=== PATIENT | female | born 1950 | race Caucasian/White ===

== ENCOUNTER 2020-08-21 14:09 | Inpatient (IN) | payer MEDICARE, MEDICAID ==
[~2020-08-21] VITALS: Ht 160 cm; Wt 47.6 kg
[~2020-08-21 14:09] MED LIST: ACETAMINOPHEN-1 EAC2 PO; ALPRAZOLAM0.25 MG PO; QUETIAPINE FUM200 MG PO
[2020-08-21] MEDS ORDERED: Morphine Sulfate 4mg/ml Inj IVP ONE (14:30)
[2020-08-21 14:31] VITALS: BP 124/82
[2020-08-21] MEDS ORDERED: GABAPENTIN100 MG ORAL (14:36)
[2020-08-21] MEDS ORDERED: LINZESS290 MCG PO (14:36)
[2020-08-21] MEDS ORDERED: DULOXETINE HCL20 MG PO (14:36)
[2020-08-21] MEDS ORDERED: ROBAXIN-500MG ORAL (14:37)
[2020-08-21] MEDS ORDERED: ALBUTEROL2.5 MG/3 M INH (14:37)
[2020-08-21 15:06] LABS: BASOPHILS % (AUTO) 1.5 % (0.0-2.0); HEMATOCRIT 46.5 % (37.0-47.0); HEMOGLOBIN 14.6 G/DL (12.0-16.0); LYMPHOCYTES % (AUTO) 27.8 % (20.0-45.0); MEAN CORPUSCULAR VOLUME 91 FL (80-99); MONOCYTES % (AUTO) 5.8 % (1.0-10.0); NEUTROPHILS % (AUTO) 63.8 % (45.0-75.0); PLATELET COUNT 252 K/UL (150-450); RED BLOOD COUNT 5.11 M/UL (4.20-5.40); RED CELL DISTRIBUTION WIDTH 13.6 % (11.6-14.8)
[2020-08-21 15:23] LABS: APPEARANCE,URINE CLEAR; BILIRUBIN, URINE NEGATIVE (NEGATIVE); COLOR,URINE PALE YELLOW; GLUCOSE, URINE (UA) NEGATIVE (NEGATIVE); KETONES,URINE NEGATIVE (NEGATIVE); LEUKOCYTE ESTERASE ,URINE NEGATIVE (NEGATIVE); NITRITE,URINE NEGATIVE (NEGATIVE); PH,URINE 5 (4.5-8.0); PROTEIN,URINE NEGATIVE (NEGATIVE); UROBILINOGEN,URINE NORMAL MG/DL (0.0-1.0)
[2020-08-21 15:28] LABS: ANION GAP 12 mmol/L (5-15); BLOOD UREA NITROGEN 14 mg/dL (7-18); CALCIUM 9.8 MG/DL (8.5-10.1); CARBON DIOXIDE 25 MMOL/L (21-32); CHLORIDE 106 MMOL/L (98-107); CREATININE 0.7 MG/DL (0.55-1.30); POTASSIUM 3.9 MMOL/L (3.5-5.1); SODIUM 143 MMOL/L (136-145)
[2020-08-21 15:33] LABS: ALANINE AMINOTRANSFERASE 22 U/L (12-78); ALBUMIN 3.7 G/DL (3.4-5.0); ALKALINE PHOSPHATASE 101 U/L (46-116); ASPARTATE AMINO TRANSFERASE 17 U/L (15-37); BILIRUBIN,TOTAL 0.3 MG/DL (0.2-1.0)
--- NOTE | 2020-08-21 15:52 | Emergency Room Report ---
History of Present Illness General Chief Complaint: Pain Source: Patient Present Illness HPI 69-year-old female presents for evaluation. Brought in by EMS from custodial facility. Complaining of rectal pain and abdominal pain x1 day. History of IBS. States she is been having diarrhea. Pain is sharp, 10 out of 10, nonradiating. No other aggravating relieving factors. Denies any other associated symptoms Allergies: Coded Allergies: No Known Allergies (Unverified , 06/15/12) COVID-19 Screening Contact w/high risk pt: No Experienced COVID-19 symptoms?: No COVID-19 Testing performed ADMINISTRATIVE DIRECTOR: No Patient History Past Medical History: none, other - IBS Past Surgical History: none Pertinent Family History: none Social History: Denies: smoking, alcohol use, drug use Now: No Immunizations: UTD Reviewed Nursing Documentation: PMH: Agreed; PSxH: Agreed Nursing Documentation-PMH Hx Cardiac Problems: No Hx Cancer: No Hx Gastrointestinal Problems: No - IBS Hx Neurological Problems: Yes Hx Meningitis: Yes - 1985 Review of Systems All Other Systems: negative except mentioned in HPI Physical Exam Vital Signs Date Time Temp Pulse Resp B/P (MAP) Pulse Ox O2 Delivery O2 Flow Rate FiO2 08/21/20 14:14 105 20 124/82 (96) 93 Room Air Sp02 EP Interpretation: reviewed, normal General Appearance: no apparent distress, alert, GCS 15, non-toxic Head: normocephalic, atraumatic Eyes: bilateral eye normal inspection, bilateral eye PERRL ENT: hearing grossly normal, normal pharynx, no angioedema, normal voice Neck: full range of motion, supple/symm/no masses Respiratory: chest non-tender, lungs clear, normal breath sounds, speaking full sentences Cardiovascular #1: regular rate, rhythm, no edema Cardiovascular #2: 2+ carotid (R), 2+ carotid (L), 2+ radial (R), 2+ radial (L), 2+ dorsalis pedis (R), 2+ dorsalis pedis (L) Gastrointestinal: normal bowel sounds, soft, no guarding, no rebound, tenderness Rectal: tenderness Genitourinary: normal inspection, no CVA tenderness Musculoskeletal: back normal, normal range of motion, gait/station normal, non- tender Neurologic: alert, motor strength/tone normal, oriented x3, sensory intact, responsive, speech normal Psychiatric: judgement/insight normal, memory normal, mood/affect normal, no suicidal/homicidal ideation Reflexes: 3+ bicep (R), 3+ bicep (L), 3+ tricep (R), 3+ tricep (L), 3+ knee (R), 3+ knee (L) Skin: no rash Lymphatic: no adenopathy Medical Decision Making Diagnostic Impression: Primary Impression: Intractable abdominal pain ER Course Hospital Course 69-year-old female presents with rectal pain and abdominal pain Differential diagnoses include: BPH, cystitis, pyelonephritis, kidney stone Clinical course 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 After initial history and physical I ordered labs, meds and CT Labs - no leukocytosis, Hb/Hct stable, electrolytes okay, UA negative CT abdomen and pelvis -no acute process. There appears to be a lesion in the left lung. Significant fecal impaction. Patient continues to have pain. We will admit Case discussed with Dr. Simental and he agreed to accept the patient to his service for further care and support I feel this is a highly complex case requiring extensive working including EKG/Rhythm strip, Xray/CT/US, Blood/urine lab work, repeat exams while in ED, an d administration of strong opiates/narcotics for pain control, admission to hospital or close patient follow up. Diagnosis -intractable abdominal pain Patient admitted to floor in serious condition Laboratory Tests Test 08/21/20 14:48 08/21/20 15:15 White Blood Count 6.0 K/UL (4.8-10.8) Red Blood Count 5.11 M/UL (4.20-5.40) Hemoglobin 14.6 G/DL (12.0-16.0) Hematocrit 46.5 % (37.0-47.0) Mean Corpuscular Volume 91 FL (80-99) Mean Corpuscular Hemoglobin 28.6 PG (27.0-31.0) Mean Corpuscular Hemoglobin Concent 31.4 G/DL (32.0-36.0) L Red Cell Distribution Width 13.6 % (11.6-14.8) Platelet Count 252 K/UL (150-450) Mean Platelet Volume 10.2 FL (6.5-10.1) H Neutrophils (%) (Auto) 63.8 % (45.0-75.0) Lymphocytes (%) (Auto) 27.8 % (20.0-45.0) Monocytes (%) (Auto) 5.8 % (1.0-10.0) Eosinophils (%) (Auto) 1.0 % (0.0-3.0) Basophils (%) (Auto) 1.5 % (0.0-2.0) Sodium Level 143 MMOL/L (136-145) Potassium Level 3.9 MMOL/L (3.5-5.1) Chloride Level 106 MMOL/L (98-107) Carbon Dioxide Level 25 MMOL/L (21-32) Anion Gap 12 mmol/L (5-15) Blood Urea Nitrogen 14 mg/dL (7-18) Creatinine 0.7 MG/DL (0.55-1.30) Estimat Glomerular Filtration Rate > 60 mL/min (>60) Glucose Level 99 MG/DL (74-106) Calcium Level 9.8 MG/DL (8.5-10.1) Total Bilirubin 0.3 MG/DL (0.2-1.0) Aspartate Amino Transf (AST/SGOT) 17 U/L (15-37) Alanine Aminotransferase (ALT/SGPT) 22 U/L (12-78) Alkaline Phosphatase 101 U/L (46-116) Total Protein 7.5 G/DL (6.4-8.2) Albumin 3.7 G/DL (3.4-5.0) Globulin 3.8 g/dL Albumin/Globulin Ratio 1.0 (1.0-2.7) Lipase 112 U/L (73-393) Urine Color Pale yellow Urine Appearance Clear Urine pH 5 (4.5-8.0) Urine Specific [place] 1.015 (1.005-1.035) Urine Protein Negative (NEGATIVE) Urine Glucose (UA) Negative (NEGATIVE) Urine Ketones Negative (NEGATIVE) Urine Blood Negative (NEGATIVE) Urine Nitrite Negative (NEGATIVE) Urine Bilirubin Negative (NEGATIVE) Urine Urobilinogen Normal MG/DL (0.0-1.0) Urine Leukocyte Esterase Negative (NEGATIVE) CT/MRI/US Diagnostic Results CT/MRI/US Diagnostic Results : Imaging Test Ordered: CT A/P Impression Procedure: CT Abdomen Pelvis w/Contrast Clinical Indication: Abdominal pain Technique: No oral contrast utilized, per emergency room physician request IV administration nonionic contrast. Venous phase spiral acquisition obtained through the abdomen and pelvis. Multiplanar reconstructions were generated. Total dose length product 162 mGycm. CTDIvol(s) 3 mGy. Dose reduction achieved using automated exposure control Comparison: none Findings: The appendix is normal. There are a few colonic diverticula. No evidence of diverticulitis. The distal ileum is mildly prominent and fluid-filled, but no transition point is noted and there is no definite wall thickening. No free or loculated intraperitoneal gas or fluid is evident. Distal esophagus, stomach, duodenum are unremarkable. The liver is unremarkable. There are questionably stones in the gallbladder neck. No biliary ductal dilatation. The pancreas, spleen, adrenals are unremarkable. There is a calcification in the right kidney which is probably parenchymal. Left kidney is unremarkable. No renal or ureteral calculi, hydronephrosis, or hydroureter. The bladder is mildly distended, otherwise unremarkable. The uterus and adnexal structures are unremarkable. No pelvic mass or adenopathy. The included lung bases demonstrate hyperinflation. There is an irregular opacity in the left lower lobe which measures 2.3 cm AP by 1.3 cm transverse, demonstrates a few internal air bronchograms. There is some adjacent peripheral scarring in the left lower lobe. There are a few small peripheral paraseptal bullae. The bones are unremarkable. Impression: Nonspecific prominence of the distal ileum, which is mildly dilated and fluid-filled, may represent mild enteritis/ileitis or could be baseline for this patient No definite acute abdominal or pelvic abnormality otherwise 2.3 x 1.3 cm irregular left lower lobe opacity. Appearance most suggestive of an area of scarring, but the possibility that this represents a mass lesion should also be considered, and further evaluation is recommended. Comparison with any prior exams may be useful or PET/CT may be useful. This finding was discussed by phone with Dr. Linares at the time of interpretation COPD changes Questionable cholelithiasis Right renal parenchymal calcification incidentally noted The CT scanner at [facility] is accredited by the [employer] and the scans are performed using protocols designed to limit radiation exposure to as low as reasonably achievable to attain images of sufficient resolution adequate for diagnostic evaluation. Last Vital Signs Date Time Temp Pulse Resp B/P (MAP) Pulse Ox O2 Delivery O2 Flow Rate FiO2 08/21/20 14:31 20 124/82 93 Room Air 08/21/20 14:14 105 Status: improved Disposition: ADMITTED INPATIENT Condition: Serious Referrals: Rodolfo Simental M.D. (PCP) Martinez Linares MD Aug 21, 2020 15:52
[2020-08-21 16:50] VITALS: BP 153/90
--- NOTE | 2020-08-21 17:10 | Diagnostic Imaging Report ---
Clinical Indication: Abdominal pain Technique: No oral contrast utilized, per emergency room physician request IV administration nonionic contrast. Venous phase spiral acquisition obtained through the abdomen and pelvis. Multiplanar reconstructions were generated. Total dose length product 162 mGycm. CTDIvol(s) 3 mGy. Dose reduction achieved using automated exposure control Comparison: none Findings: The appendix is normal. There are a few colonic diverticula. No evidence of diverticulitis. The distal ileum is mildly prominent and fluid-filled, but no transition point is noted and there is no definite wall thickening. No free or loculated intraperitoneal gas or fluid is evident. Distal esophagus, stomach, duodenum are unremarkable. The liver is unremarkable. There are questionably stones in the gallbladder neck. No biliary ductal dilatation. The pancreas, spleen, adrenals are unremarkable. There is a calcification in the right kidney which is probably parenchymal. Left kidney is unremarkable. No renal or ureteral calculi, hydronephrosis, or hydroureter. The bladder is mildly distended, otherwise unremarkable. The uterus and adnexal structures are unremarkable. No pelvic mass or adenopathy. The included lung bases demonstrate hyperinflation. There is an irregular opacity in the left lower lobe which measures 2.3 cm AP by 1.3 cm transverse, demonstrates a few internal air bronchograms. There is some adjacent peripheral scarring in the left lower lobe. There are a few small peripheral paraseptal bullae. The bones are unremarkable. Impression: Nonspecific prominence of the distal ileum, which is mildly dilated and fluid-filled, may represent mild enteritis/ileitis or could be baseline for this patient No definite acute abdominal or pelvic abnormality otherwise 2.3 x 1.3 cm irregular left lower lobe opacity. Appearance most suggestive of an area of scarring, but the possibility that this represents a mass lesion should also be considered, and further evaluation is recommended. Comparison with any prior exams may be useful or PET/CT may be useful. This finding was discussed by phone with Dr. Linares at the time of interpretation COPD changes Questionable cholelithiasis Right renal parenchymal calcification incidentally noted The CT scanner at [facility] is accredited by the [employer] and the scans are performed using protocols designed to limit radiation exposure to as low as reasonably achievable to attain images of sufficient resolution adequate for diagnostic evaluation.
[2020-08-21 20:00] VITALS: BP 150/89
[2020-08-21] MEDS ORDERED: oxyCODONE 5mg IR tab ORAL PRN (20:00)
[2020-08-21] MEDS ORDERED: Albuterol ud Inhalation HHN PRN (20:00)
[2020-08-21] MEDS ORDERED: Methocarbamol 500mg tab ORAL PRN (20:00)
[2020-08-21] MEDS ORDERED: Miralax 17gm pkt ORAL PRN (20:00)
[2020-08-22] VITALS: BP 129/81
[2020-08-22 04:00] VITALS: BP 125/68
[2020-08-22 08:44] VITALS: BP 134/84
[2020-08-22] MEDS: oxyCODONE 5mg IR tab ORAL PRN ×2 (08:55→15:00)
[2020-08-22 12:35] VITALS: BP 138/84
[2020-08-22 17:00] VITALS: BP 147/98
--- NOTE | 2020-08-22 19:58 | Consultation ---
History of Present Illness General Date patient seen: Aug 22, 2020 Reason for Hospitalization: Pain Present Illness HPI This is a very pleasant [age] female presented to [facility] complaining of abdominal pain states overall body hurts. States she is at her care facility and they are not giving her the pain medication she needs and she needs a prescription for it and she feels her pain is significant and deserves for pain medication. Given abdominal pain surgery called to eval and assist with care. Patient seen, patient evaluate, chart reviewed. Labs noted imaging reviewed. Exam benign Allergies: Coded Allergies: No Known Allergies (Unverified , 06/15/12) COVID-19 Screening Contact w/high risk pt: No Experienced COVID-19 symptoms?: No Medication History Scheduled Acetaminophen With Codeine (T#4) (Tylenol #4 Tab*), 1 EACH PO DAILY, (Reported) Alprazolam* (Xanax*), 1 TAB PO PRN, (Reported) Duloxetine HCl (Duloxetine HCl*), 20 MG PO DAILY, (Reported) Gabapentin* (Gabapentin*), 300 MG ORAL THREE TIMES A DAY, (Reported) Quetiapine Fumarate* (Seroquel*), 200 MG PO HS, (Reported) Scheduled PRN Albuterol Sulfate* (Albuterol Sulfate Hhn*), 3 ML INH Q4H PRN for Shortness of Breath, (Reported) Methocarbamol* (Robaxin-500*), 500 MG ORAL QID PRN for For Pain, (Reported) Miscellaneous Medications Linaclotide (Linzess), 290 MCG PO, (Reported) Patient History History Provided By: Patient, Medical Record, PMD Healthcare decision maker N Resuscitation status Advanced Directive on File Past Medical/Surgical History Past Medical/Surgical History: (1) Intractable abdominal pain Review of Systems Review of Symptoms General ROS: no weight loss or fever Psychological ROS: no depression or mood changes, no memory loss Ophthalmic ROS: no visual changes or eye irritation ENT ROS: no nasal congestion, hearing loss, dizziness Allergy and Immunology ROS: no allergic symptoms or urticaria Hematological and Lymphatic ROS: no swollen glands, unusual bleeding or bruising Endocrine ROS: no polyuria, polydipsia, weight changes, temperature intolerance Respiratory ROS: no cough, shortness of breath, or wheezing Cardiovascular ROS: no chest pain or dyspnea on exertion Gastrointestinal ROS: denies abdominal pain, bright red blood in stool. Musculoskeletal ROS: no myalgias or arthralgias Neurological ROS: no TIA or stroke symptoms Dermatological ROS: no new or changing skin lesions, rashes or pruritis Physical Exam Physical Exam General appearance: alert, cooperative, no distress, appears stated age Head: Normocephalic, without obvious abnormality, atraumatic Eyes: conjunctivae/corneas clear. PERRL, EOM's intact. Fundi benign Throat: Lips, mucosa, and tongue normal. Teeth and gums normal Neck: supple, symmetrical, trachea midline, no adenopathy, thyroid: not enlarged, symmetric, no tenderness/mass/nodules, no carotid bruit and no JVD Lungs: clear to auscultation bilaterally Heart: regular rate and rhythm, S1, S2 normal, no murmur, click, rub or gallop Abdomen: soft, non-tender. Bowel sounds normal. No masses, no organomegaly Extremities: extremities normal, atraumatic, no cyanosis or edema Pulses: 2+ and symmetric Skin: Skin color, texture, turgor normal. No rashes or lesions Neurologic: Grossly normal Last 24 Hour Vital Signs Date Time Temp Pulse Resp B/P (MAP) Pulse Ox O2 Delivery O2 Flow Rate FiO2 08/22/20 17:00 98.2 73 18 147/98 (114) 95 08/22/20 12:35 97.9 69 18 138/84 (102) 95 08/22/20 09:00 Room Air 08/22/20 08:44 97.9 72 18 134/84 (101) 95 08/22/20 08:40 76 16 98 Room Air 21 08/22/20 04:00 97.2 63 18 125/68 (87) 94 08/22/20 00:00 98.0 87 20 129/81 (97) 95 08/21/20 20:50 Room Air 08/21/20 20:00 97.9 89 20 150/89 (109) 96 Intake and Output 08/21/20 08/22/20 19:00 07:00 Intake Total 800 ml Balance 800 ml Intake Oral 800 ml # Voids 1 Height (Feet): 5 Height (Inches): 3.00 Weight (Pounds): 105 Medications Current Medications Medications (Trade) Dose Ordered Sig/Haven Route PRN Reason Start Time Stop Time Status Last Admin Dose Admin Acetaminophen (Tylenol) 650 mg Q6H PRN ORAL Mild Pain (1-3) or Fever 100.5 08/21/20 20:00 09/20/20 19:59 Albuterol Sulfate (Proventil) 2.5 mg Q4H PRN HHN Shortness of Breath 08/21/20 20:00 08/26/20 19:59 Duloxetine HCl (Cymbalta) 20 mg DAILY ORAL 08/22/20 09:00 11/20/20 08:59 Gabapentin (Neurontin) 300 mg THREE TIMES A DAY ORAL 08/22/20 09:00 09/21/20 08:59 Linaclotide (Linzess) 290 mcg BEFORE BREAKFAST ORAL 08/22/20 06:30 11/20/20 06:29 08/22/20 06:12 Methocarbamol (Robaxin) 500 mg QID PRN ORAL Muscle Spasm 08/21/20 20:00 09/20/20 19:59 Ondansetron HCl (Zofran) 4 mg Q6H PRN IVP Nausea & Vomiting 08/21/20 20:00 09/20/20 19:59 Oxycodone HCl (Roxicodone) 10 mg Q6HR PRN ORAL Moderate Pain (Pain Scale 4-6) 08/22/20 00:45 08/28/20 19:59 08/22/20 15:00 Polyethylene Glycol (Miralax) 17 gm DAILY PRN ORAL Constipation 08/21/20 20:00 09/20/20 19:59 Quetiapine Fumarate (SEROqueL) 100 mg BEDTIME ORAL 08/21/20 21:30 10/05/20 21:29 08/21/20 21:23 Assessment/Plan Problem List: (1) Intractable abdominal pain Assessment & Plan: The appendix is normal. There are a few colonic diverticula. No evidence of diverticulitis. The distal ileum is mildly prominent and fluid-filled, but no transition point is noted and there is no definite wall thickening. No free or loculated intraperitoneal gas or fluid is evident. Distal esophagus, stomach, duodenum are unremarkable. The liver is unremarkable. There are questionably stones in the gallbladder neck. No biliary ductal dilatation. The pancreas, spleen, adrenals are unremarkable. There is a calcification in the right kidney which is probably parenchymal. Left kidney is unremarkable. No renal or ureteral calculi, hydronephrosis, or hydroureter. The bladder is mildly distended, otherwise unremarkable. The uterus and adnexal structures are unremarkable. No pelvic mass or adenopathy. The included lung bases demonstrate hyperinflation. There is an irregular opacity in the left lower lobe which measures 2.3 cm AP by 1.3 cm transverse, demonstrates a few internal air bronchograms. There is some adjacent peripheral scarring in the left lower lobe. There are a few small peripheral paraseptal bullae. no acute abd pathology exam benign no n/v/f/c tolerating diet having bowel function not surgical abdomen okay for diet Rx as written AM labs will follow with exam and recs ICD Codes: R10.9 - Unspecified abdominal pain SNOMED: [id number] Ag Brito Aug 22, 2020 19:58
[2020-08-22 20:00] VITALS: BP 126/78
--- NOTE | 2020-08-22 20:12 | History & Physical ---
History of Present Illness General Reason for Hospitalization: Pain Present Illness HPI [age] female presented to [facility] complaining of abdominal pain states overall body hurts. States she is at her care facility and they are not giving her the pain medication she needs and she needs a prescription for it and she feels her pain is significant and deserves for pain medication. Allergies: Coded Allergies: No Known Allergies (Unverified , 06/15/12) COVID-19 Screening Contact w/high risk pt: No Experienced COVID-19 symptoms?: No Medication History Scheduled Acetaminophen With Codeine (T#4) (Tylenol #4 Tab*), 1 EACH PO DAILY, (Reported) Alprazolam* (Xanax*), 1 TAB PO PRN, (Reported) Duloxetine HCl (Duloxetine HCl*), 20 MG PO DAILY, (Reported) Gabapentin* (Gabapentin*), 300 MG ORAL THREE TIMES A DAY, (Reported) Quetiapine Fumarate* (Seroquel*), 200 MG PO HS, (Reported) Scheduled PRN Albuterol Sulfate* (Albuterol Sulfate Hhn*), 3 ML INH Q4H PRN for Shortness of Breath, (Reported) Methocarbamol* (Robaxin-500*), 500 MG ORAL QID PRN for For Pain, (Reported) Miscellaneous Medications Linaclotide (Linzess), 290 MCG PO, (Reported) Patient History Healthcare decision maker N Resuscitation status Advanced Directive on File Review of Systems Review of Symptoms General ROS: no weight loss or fever Psychological ROS: no depression or mood changes, no memory loss Ophthalmic ROS: no visual changes or eye irritation ENT ROS: no nasal congestion, hearing loss, dizziness Allergy and Immunology ROS: no allergic symptoms or urticaria Hematological and Lymphatic ROS: no swollen glands, unusual bleeding or bruising Endocrine ROS: no polyuria, polydipsia, weight changes, temperature intolerance Respiratory ROS: no cough, shortness of breath, or wheezing Cardiovascular ROS: no chest pain or dyspnea on exertion Gastrointestinal ROS: denies abdominal pain, bright red blood in stool. Musculoskeletal ROS: no myalgias or arthralgias Neurological ROS: no TIA or stroke symptoms Dermatological ROS: no new or changing skin lesions, rashes or pruritis Physical Exam Physical Exam General appearance: alert, cooperative, no distress, appears stated age Head: Normocephalic, without obvious abnormality, atraumatic Eyes: conjunctivae/corneas clear. PERRL, EOM's intact. Fundi benign Throat: Lips, mucosa, and tongue normal. Teeth and gums normal Neck: supple, symmetrical, trachea midline, no adenopathy, thyroid: not enlarged, symmetric, no tenderness/mass/nodules, no carotid bruit and no JVD Lungs: clear to auscultation bilaterally Heart: regular rate and rhythm, S1, S2 normal, no murmur, click, rub or gallop Abdomen: soft, non-tender. Bowel sounds normal. No masses, no organomegaly Extremities: extremities normal, atraumatic, no cyanosis or edema Pulses: 2+ and symmetric Skin: Skin color, texture, turgor normal. No rashes or lesions Neurologic: Grossly normal Last 24 Hour Vital Signs Date Time Temp Pulse Resp B/P (MAP) Pulse Ox O2 Delivery O2 Flow Rate FiO2 08/22/20 17:00 98.2 73 18 147/98 (114) 95 08/22/20 12:35 97.9 69 18 138/84 (102) 95 08/22/20 09:00 Room Air 08/22/20 08:44 97.9 72 18 134/84 (101) 95 08/22/20 08:40 76 16 98 Room Air 21 08/22/20 04:00 97.2 63 18 125/68 (87) 94 08/22/20 00:00 98.0 87 20 129/81 (97) 95 08/21/20 20:50 Room Air Intake and Output 08/21/20 08/22/20 19:00 07:00 Intake Total 800 ml Balance 800 ml Intake Oral 800 ml # Voids 1 Height (Feet): 5 Height (Inches): 3.00 Weight (Pounds): 105 Medications Current Medications Medications (Trade) Dose Ordered Sig/Haven Route PRN Reason Start Time Stop Time Status Last Admin Dose Admin Acetaminophen (Tylenol) 650 mg Q6H PRN ORAL Mild Pain (1-3) or Fever 100.5 08/21/20 20:00 09/20/20 19:59 Albuterol Sulfate (Proventil) 2.5 mg Q4H PRN HHN Shortness of Breath 08/21/20 20:00 08/26/20 19:59 Docusate Sodium (Colace) 100 mg TWICE A DAY ORAL 08/23/20 09:00 09/22/20 08:59 Duloxetine HCl (Cymbalta) 20 mg DAILY ORAL 08/22/20 09:00 11/20/20 08:59 Gabapentin (Neurontin) 300 mg THREE TIMES A DAY ORAL 08/22/20 09:00 09/21/20 08:59 Linaclotide (Linzess) 290 mcg BEFORE BREAKFAST ORAL 08/22/20 06:30 11/20/20 06:29 08/22/20 06:12 Methocarbamol (Robaxin) 500 mg QID PRN ORAL Muscle Spasm 08/21/20 20:00 09/20/20 19:59 Ondansetron HCl (Zofran) 4 mg Q6H PRN IVP Nausea & Vomiting 08/21/20 20:00 09/20/20 19:59 Oxycodone HCl (Roxicodone) 10 mg Q6HR PRN ORAL Moderate Pain (Pain Scale 4-6) 08/22/20 00:45 08/28/20 19:59 08/22/20 15:00 Polyethylene Glycol (Miralax) 17 gm DAILY PRN ORAL Constipation 08/21/20 20:00 09/20/20 19:59 Quetiapine Fumarate (SEROqueL) 100 mg BEDTIME ORAL 08/21/20 21:30 10/05/20 21:29 08/21/20 21:23 Assessment/Plan Diagnosis [place]: #abd pain #generalized body pain #rectal pain #constipation - admit inpatient - gen surg eval - pain control - seroquel at bedtime - bowel regimen [facility] Hospital declaration I spent 70 minutes on this patient's case, and 35 minutes was dedicated to counseling and/or care coordination. MIPS (Merit-based Incentive Payment System) Applicable CPT: 46587, 80914 CHECK ALL THAT ARE MET: Measure #5 (CHF): All ages. Prescribe JONATHAN/ARB upon discharge for patients with left ventricular systolic dysfunction. If not, the reason is clearly documented in the medical chart. Measure #8 (CHF): All ages. Prescribe a beta hansel upon discharge for patients with left ventricular systolic dysfunction. If not, the reason is clearly documented in the medical chart. Measure #47 Advance care plan or surrogate decision maker documented in the medical record. Measure #130 The provider has documented, updated, or reviewed the patients current medication list and has documented it in the patients note. Measure #374 (All): Send report to referring provider. Measure #407(Sepsis due to MSSA bacteremia): Age 18+ Patient treated with a beta-lactam antibiotic (Nafcillin, Oxacillin or Cefazolin) as definitive therapy. MEDICAL COMPLEXITY High complexity medical decision making (need 2/3 categories) Problem - need 4 points Acute/new problem with new plan for workup (4 points, 1 max) Acute/new problem without additional workup (3 points, 1 max) Unstable chronic problem actively being managed (2 point each, 2 max) Stable chronic problem actively being managed (1 point each, 2 max) Self-limited/transient process (constipation, muscle ache, etc) (1 point each, 2 max) Data - need 4 points Reviewed labs/imaging studies (1 points, 2 max) Independent review of imaging (EKG, xrays, etc) (2 points, 2 max) Discussed case with consult/other MD/RN (2 points, 2 max) High Risk - qualify if have one of the following: Severe exacerbation of acute problem, acute mental status change, IV narcotics, monitoring drug levels (vancomycin, INR, tacrolimus etc) Rodolfo Simental M.D. Aug 22, 2020 20:12
[2020-08-23] VITALS: BP 130/75
[2020-08-23 04:00] VITALS: BP 123/72
[2020-08-23] MEDS: oxyCODONE 5mg IR tab ORAL PRN ×3 (07:34→19:52)
[2020-08-23 08:00] VITALS: BP 144/88
[2020-08-23] MEDS: Docusate 100mg cap ORAL SCH ×2 (09:09→18:00)
[2020-08-23 09:34] LABS: BASOPHILS % (AUTO) 2.1 % (0.0-2.0); EOSINOPHILS % (AUTO) 2.5 % (0.0-3.0); HEMATOCRIT 42.3 % (37.0-47.0); HEMOGLOBIN 13.4 G/DL (12.0-16.0); MEAN CORPUSCULAR VOLUME 90 FL (80-99); MONOCYTES % (AUTO) 6.2 % (1.0-10.0); NEUTROPHILS % (AUTO) 58.2 % (45.0-75.0); PLATELET COUNT 218 K/UL (150-450); RED BLOOD COUNT 4.69 M/UL (4.20-5.40); RED CELL DISTRIBUTION WIDTH 13.2 % (11.6-14.8); WHITE BLOOD COUNT 4.5 K/UL (4.8-10.8)
[2020-08-23 10:03] LABS: ALANINE AMINOTRANSFERASE 22 U/L (12-78); ALBUMIN 3.2 G/DL (3.4-5.0); ALBUMIN/GLOBULIN RATIO 0.9 (1.0-2.7); ALKALINE PHOSPHATASE 88 U/L (46-116); AMYLASE 67 U/L (25-115); ANION GAP 7 mmol/L (5-15); ASPARTATE AMINO TRANSFERASE 15 U/L (15-37); BILIRUBIN,TOTAL 0.2 MG/DL (0.2-1.0); BLOOD UREA NITROGEN 16 mg/dL (7-18); CALCIUM 9.2 MG/DL (8.5-10.1); CARBON DIOXIDE 26 MMOL/L (21-32); CHLORIDE 112 MMOL/L (98-107); CREATININE 0.8 MG/DL (0.55-1.30); POTASSIUM 3.9 MMOL/L (3.5-5.1); SODIUM 145 MMOL/L (136-145)
--- NOTE | 2020-08-23 11:56 | Internal Med Progress Note ---
Subjective Physician Name Rodolfo Simental Attending Physician Rodolfo Simental M.D. Current Medications Medications (Trade) Dose Ordered Sig/Haven Route PRN Reason Start Time Stop Time Status Last Admin Dose Admin Acetaminophen (Tylenol) 650 mg Q6H PRN ORAL Mild Pain (1-3) or Fever 100.5 08/21/20 20:00 09/20/20 19:59 Albuterol Sulfate (Proventil) 2.5 mg Q4H PRN HHN Shortness of Breath 08/21/20 20:00 08/26/20 19:59 Docusate Sodium (Colace) 100 mg TWICE A DAY ORAL 08/23/20 09:00 09/22/20 08:59 08/23/20 09:09 Duloxetine HCl (Cymbalta) 20 mg DAILY ORAL 08/22/20 09:00 11/20/20 08:59 Gabapentin (Neurontin) 300 mg THREE TIMES A DAY ORAL 08/22/20 09:00 09/21/20 08:59 Linaclotide (Linzess) 290 mcg BEFORE BREAKFAST ORAL 08/22/20 06:30 11/20/20 06:29 08/23/20 06:16 Methocarbamol (Robaxin) 500 mg QID PRN ORAL Muscle Spasm 08/21/20 20:00 09/20/20 19:59 Ondansetron HCl (Zofran) 4 mg Q6H PRN IVP Nausea & Vomiting 08/21/20 20:00 09/20/20 19:59 Oxycodone HCl (Roxicodone) 10 mg Q6HR PRN ORAL Moderate Pain (Pain Scale 4-6) 08/22/20 00:45 08/28/20 19:59 08/23/20 07:34 Polyethylene Glycol (Miralax) 17 gm DAILY PRN ORAL Constipation 08/21/20 20:00 09/20/20 19:59 Quetiapine Fumarate (SEROqueL) 100 mg BEDTIME ORAL 08/21/20 21:30 10/05/20 21:29 08/22/20 21:38 Allergies: Coded Allergies: No Known Allergies (Unverified , 06/15/12) ROS Limited/Unobtainable: No Constitutional: Reports: weakness HEENT: Denies: no symptoms, eye pain, blurred vision, tearing, double vision, ear pain, ear discharge, nose pain, nose congestion, throat pain, throat swelling, mouth pain, mouth swelling, other Cardiovascular: Denies: no symptoms, chest pain, edema, irregular heart rate, lightheadedness, palpitations, syncope, other Respiratory: Denies: no symptoms, cough, orthopnea, shortness of breath, SOB with excertion, SOB at rest, sputum, stridor, wheezing, other Gastrointestinal/Abdominal: Reports: abdominal pain Genitourinary: Denies: no symptoms, burning, discharge, frequency, flank pain, hematuria, incontinence, pain, urgency, other Neurologic/Psychiatric: Denies: no symptoms, anxiety, depressed, emotional problems, headache, numbness, paresthesia, pre-existing deficit, seizure, tingling, tremors, weakness, other Subjective continues to complain of abd pain Objective Last Vital Signs Date Time Temp Pulse Resp B/P (MAP) Pulse Ox O2 Delivery O2 Flow Rate FiO2 08/23/20 09:52 66 16 97 Room Air 21 08/23/20 08:00 97.5 144/88 (106) General Appearance: no apparent distress, alert EENT: PERRL/EOMI, normal ENT inspection Neck: non-tender, normal alignment Cardiovascular: normal peripheral pulses, normal rate, regular rhythm Respiratory/Chest: chest wall non-tender, lungs clear Abdomen: tender Extremities: normal range of motion Edema: trace edema Neurologic: alert, oriented x 3 Laboratory Tests Test 08/23/20 09:10 White Blood Count 4.5 K/UL (4.8-10.8) L Red Blood Count 4.69 M/UL (4.20-5.40) Hemoglobin 13.4 G/DL (12.0-16.0) Hematocrit 42.3 % (37.0-47.0) Mean Corpuscular Volume 90 FL (80-99) Mean Corpuscular Hemoglobin 28.5 PG (27.0-31.0) Mean Corpuscular Hemoglobin Concent 31.6 G/DL (32.0-36.0) L Red Cell Distribution Width 13.2 % (11.6-14.8) Platelet Count 218 K/UL (150-450) Mean Platelet Volume 10.1 FL (6.5-10.1) Neutrophils (%) (Auto) 58.2 % (45.0-75.0) Lymphocytes (%) (Auto) 31.0 % (20.0-45.0) Monocytes (%) (Auto) 6.2 % (1.0-10.0) Eosinophils (%) (Auto) 2.5 % (0.0-3.0) Basophils (%) (Auto) 2.1 % (0.0-2.0) H Erythrocyte Sedimentation Rate 25 MM/HR (0-30) Prothrombin Time 10.8 SEC (9.30-11.50) Prothromb Time International Ratio 1.0 (0.9-1.1) Activated Partial Thromboplast Time 27 SEC (23-33) Sodium Level 145 MMOL/L (136-145) Potassium Level 3.9 MMOL/L (3.5-5.1) Chloride Level 112 MMOL/L (98-107) H Carbon Dioxide Level 26 MMOL/L (21-32) Anion Gap 7 mmol/L (5-15) Blood Urea Nitrogen 16 mg/dL (7-18) Creatinine 0.8 MG/DL (0.55-1.30) Estimat Glomerular Filtration Rate > 60 mL/min (>60) Glucose Level 108 MG/DL (74-106) H Calcium Level 9.2 MG/DL (8.5-10.1) Total Bilirubin 0.2 MG/DL (0.2-1.0) Aspartate Amino Transf (AST/SGOT) 15 U/L (15-37) Alanine Aminotransferase (ALT/SGPT) 22 U/L (12-78) Alkaline Phosphatase 88 U/L (46-116) C-Reactive Protein, Quantitative 0.6 mg/dL (0.00-0.90) Total Protein 6.6 G/DL (6.4-8.2) Albumin 3.2 G/DL (3.4-5.0) L Globulin 3.4 g/dL Albumin/Globulin Ratio 0.9 (1.0-2.7) L Amylase Level 67 U/L (25-115) Lipase 180 U/L (73-393) Microbiology Date/Time Source Procedure Growth Status 08/21/20 18:17 Rectum - Final NO CARBAPENEM-RESISTANT ENTEROBACTERI... Complete 08/21/20 18:17 Rectum VRE Culture - Final NO VANCOMYCIN RESISTANT ENTEROCOCCUS ... Complete Intake and Output 08/22/20 08/23/20 19:00 07:00 Intake Total 960 ml 420 ml Balance 960 ml 420 ml Intake Oral 960 ml 420 ml # Voids 2 2 Assessment/Plan Assessment/Plan #abd pain #generalized body pain #rectal pain #constipation - admit inpatient - gen surg eval - pain control - seroquel at bedtime - bowel regimen Rodolfo Simental M.D. Aug 23, 2020 11:56
[2020-08-23 12:00] VITALS: BP 141/89
--- NOTE | 2020-08-23 12:53 | Surgery Progress Note ---
Surgery Progress Note Subjective Symptoms: improved Additional Comments Patient seen and examined with primary care physician at bedside. Patient likely has a dependency on pain medication her primary care physician is trying to wean her off but patient is very reluctant. No nausea vomiting fever chills tolerating diet. Objective Last 24 Hour Vital Signs Date Time Temp Pulse Resp B/P (MAP) Pulse Ox O2 Delivery O2 Flow Rate FiO2 08/23/20 09:52 66 16 97 Room Air 21 08/23/20 09:19 Room Air 08/23/20 08:00 97.5 76 18 144/88 (106) 95 08/23/20 04:00 97.8 62 16 123/72 (89) 92 08/23/20 00:00 97.6 65 17 130/75 (93) 93 08/22/20 21:00 Room Air 08/22/20 20:00 60 18 94 Room Air 21 08/22/20 20:00 97.9 60 15 126/78 (94) 94 08/22/20 17:00 98.2 73 18 147/98 (114) 95 I&O Intake and Output 08/22/20 08/23/20 19:00 07:00 Intake Total 960 ml 420 ml Balance 960 ml 420 ml Intake Oral 960 ml 420 ml # Voids 2 2 Cardiovascular: RSR Respiratory: clear Abdomen: soft, flat, non-tender, present bowel sounds, non-distended Extremities: no edema, no tenderness, no cyanosis Laboratory Tests Test 08/23/20 09:10 White Blood Count 4.5 K/UL (4.8-10.8) L Red Blood Count 4.69 M/UL (4.20-5.40) Hemoglobin 13.4 G/DL (12.0-16.0) Hematocrit 42.3 % (37.0-47.0) Mean Corpuscular Volume 90 FL (80-99) Mean Corpuscular Hemoglobin 28.5 PG (27.0-31.0) Mean Corpuscular Hemoglobin Concent 31.6 G/DL (32.0-36.0) L Red Cell Distribution Width 13.2 % (11.6-14.8) Platelet Count 218 K/UL (150-450) Mean Platelet Volume 10.1 FL (6.5-10.1) Neutrophils (%) (Auto) 58.2 % (45.0-75.0) Lymphocytes (%) (Auto) 31.0 % (20.0-45.0) Monocytes (%) (Auto) 6.2 % (1.0-10.0) Eosinophils (%) (Auto) 2.5 % (0.0-3.0) Basophils (%) (Auto) 2.1 % (0.0-2.0) H Erythrocyte Sedimentation Rate 25 MM/HR (0-30) Prothrombin Time 10.8 SEC (9.30-11.50) Prothromb Time International Ratio 1.0 (0.9-1.1) Activated Partial Thromboplast Time 27 SEC (23-33) Sodium Level 145 MMOL/L (136-145) Potassium Level 3.9 MMOL/L (3.5-5.1) Chloride Level 112 MMOL/L (98-107) H Carbon Dioxide Level 26 MMOL/L (21-32) Anion Gap 7 mmol/L (5-15) Blood Urea Nitrogen 16 mg/dL (7-18) Creatinine 0.8 MG/DL (0.55-1.30) Estimat Glomerular Filtration Rate > 60 mL/min (>60) Glucose Level 108 MG/DL (74-106) H Calcium Level 9.2 MG/DL (8.5-10.1) Total Bilirubin 0.2 MG/DL (0.2-1.0) Aspartate Amino Transf (AST/SGOT) 15 U/L (15-37) Alanine Aminotransferase (ALT/SGPT) 22 U/L (12-78) Alkaline Phosphatase 88 U/L (46-116) C-Reactive Protein, Quantitative 0.6 mg/dL (0.00-0.90) Total Protein 6.6 G/DL (6.4-8.2) Albumin 3.2 G/DL (3.4-5.0) L Globulin 3.4 g/dL Albumin/Globulin Ratio 0.9 (1.0-2.7) L Amylase Level 67 U/L (25-115) Lipase 180 U/L (73-393) Plan Problems: (1) Intractable abdominal pain Assessment & Plan: The appendix is normal. There are a few colonic diverticula. No evidence of diverticulitis. The distal ileum is mildly prominent and fluid-filled, but no transition point is noted and there is no definite wall thickening. No free or loculated intraperitoneal gas or fluid is evident. Distal esophagus, stomach, duodenum are unremarkable. The liver is unremarkable. There are questionably stones in the gallbladder neck. No biliary ductal dilatation. The pancreas, spleen, adrenals are unremarkable. There is a calcification in the right kidney which is probably parenchymal. Left kidney is unremarkable. No renal or ureteral calculi, hydronephrosis, or hydroureter. The bladder is mildly distended, otherwise unremarkable. The uterus and adnexal structures are unremarkable. No pelvic mass or adenopathy. The included lung bases demonstrate hyperinflation. There is an irregular opacity in the left lower lobe which measures 2.3 cm AP by 1.3 cm transverse, demonstrates a few internal air bronchograms. There is some adjacent peripheral scarring in the left lower lobe. There are a few small peripheral paraseptal bullae. no acute abd pathology exam benign no n/v/f/c tolerating diet having bowel function not surgical abdomen okay for diet Rx as written AM labs will follow with exam and recs Ag Brito Aug 23, 2020 12:53
[2020-08-23 16:00] VITALS: BP 145/85
[2020-08-23 20:00] VITALS: BP 151/84
[2020-08-24] VITALS: BP 111/73
[2020-08-24 04:00] VITALS: BP 96/59
[2020-08-24 08:00] VITALS: BP 122/80
[2020-08-24] MEDS: oxyCODONE 5mg IR tab ORAL PRN ×2 (08:06→14:21)
[2020-08-24] MEDS: Docusate 100mg cap ORAL SCH ×2 (08:06→08:07)
--- NOTE | 2020-08-24 08:51 | Internal Med Progress Note ---
Subjective Physician Name Rodolfo Simental Attending Physician Rodolfo Simental M.D. Current Medications Medications (Trade) Dose Ordered Sig/Haven Route PRN Reason Start Time Stop Time Status Last Admin Dose Admin Acetaminophen (Tylenol) 650 mg Q6H PRN ORAL Mild Pain (1-3) or Fever 100.5 08/21/20 20:00 09/20/20 19:59 Albuterol Sulfate (Proventil) 2.5 mg Q4H PRN HHN Shortness of Breath 08/21/20 20:00 08/26/20 19:59 Docusate Sodium (Colace) 100 mg TWICE A DAY ORAL 08/23/20 09:00 09/22/20 08:59 08/23/20 09:09 Duloxetine HCl (Cymbalta) 20 mg DAILY ORAL 08/22/20 09:00 11/20/20 08:59 Gabapentin (Neurontin) 300 mg THREE TIMES A DAY ORAL 08/22/20 09:00 09/21/20 08:59 Linaclotide (Linzess) 290 mcg BEFORE BREAKFAST ORAL 08/22/20 06:30 11/20/20 06:29 08/24/20 06:27 Methocarbamol (Robaxin) 500 mg QID PRN ORAL Muscle Spasm 08/21/20 20:00 09/20/20 19:59 Ondansetron HCl (Zofran) 4 mg Q6H PRN IVP Nausea & Vomiting 08/21/20 20:00 09/20/20 19:59 Oxycodone HCl (Roxicodone) 10 mg Q6HR PRN ORAL Moderate Pain (Pain Scale 4-6) 08/22/20 00:45 08/28/20 19:59 08/24/20 08:06 Polyethylene Glycol (Miralax) 17 gm DAILY PRN ORAL Constipation 08/21/20 20:00 09/20/20 19:59 Quetiapine Fumarate (SEROqueL) 100 mg BEDTIME ORAL 08/21/20 21:30 10/05/20 21:29 08/23/20 21:20 Allergies: Coded Allergies: No Known Allergies (Unverified , 06/15/12) ROS Limited/Unobtainable: No Constitutional: Reports: weakness HEENT: Denies: no symptoms, eye pain, blurred vision, tearing, double vision, ear pain, ear discharge, nose pain, nose congestion, throat pain, throat swelling, mouth pain, mouth swelling, other Cardiovascular: Denies: no symptoms, chest pain, edema, irregular heart rate, lightheadedness, palpitations, syncope, other Respiratory: Denies: no symptoms, cough, orthopnea, shortness of breath, SOB with excertion, SOB at rest, sputum, stridor, wheezing, other Gastrointestinal/Abdominal: Denies: no symptoms, abdomen distended, abdominal pain, black stools, tarry stools, blood in stool, constipated, diarrhea, difficulty swallowing, nausea, poor appetite, poor fluid intake, rectal bleeding, vomiting, other Genitourinary: Denies: no symptoms, burning, discharge, frequency, flank pain, hematuria, incontinence, pain, urgency, other Neurologic/Psychiatric: Denies: no symptoms, anxiety, depressed, emotional problems, headache, numbness, paresthesia, pre-existing deficit, seizure, tingling, tremors, weakness, other Subjective continues to complain of abd pain Objective Last Vital Signs Date Time Temp Pulse Resp B/P (MAP) Pulse Ox O2 Delivery O2 Flow Rate FiO2 08/24/20 04:00 97.4 56 18 96/59 (71) 92 08/23/20 21:00 Room Air 08/23/20 19:56 21 Laboratory Tests Test 08/23/20 09:10 White Blood Count 4.5 K/UL (4.8-10.8) L Red Blood Count 4.69 M/UL (4.20-5.40) Hemoglobin 13.4 G/DL (12.0-16.0) Hematocrit 42.3 % (37.0-47.0) Mean Corpuscular Volume 90 FL (80-99) Mean Corpuscular Hemoglobin 28.5 PG (27.0-31.0) Mean Corpuscular Hemoglobin Concent 31.6 G/DL (32.0-36.0) L Red Cell Distribution Width 13.2 % (11.6-14.8) Platelet Count 218 K/UL (150-450) Mean Platelet Volume 10.1 FL (6.5-10.1) Neutrophils (%) (Auto) 58.2 % (45.0-75.0) Lymphocytes (%) (Auto) 31.0 % (20.0-45.0) Monocytes (%) (Auto) 6.2 % (1.0-10.0) Eosinophils (%) (Auto) 2.5 % (0.0-3.0) Basophils (%) (Auto) 2.1 % (0.0-2.0) H Erythrocyte Sedimentation Rate 25 MM/HR (0-30) Prothrombin Time 10.8 SEC (9.30-11.50) Prothromb Time International Ratio 1.0 (0.9-1.1) Activated Partial Thromboplast Time 27 SEC (23-33) Sodium Level 145 MMOL/L (136-145) Potassium Level 3.9 MMOL/L (3.5-5.1) Chloride Level 112 MMOL/L (98-107) H Carbon Dioxide Level 26 MMOL/L (21-32) Anion Gap 7 mmol/L (5-15) Blood Urea Nitrogen 16 mg/dL (7-18) Creatinine 0.8 MG/DL (0.55-1.30) Estimat Glomerular Filtration Rate > 60 mL/min (>60) Glucose Level 108 MG/DL (74-106) H Calcium Level 9.2 MG/DL (8.5-10.1) Total Bilirubin 0.2 MG/DL (0.2-1.0) Aspartate Amino Transf (AST/SGOT) 15 U/L (15-37) Alanine Aminotransferase (ALT/SGPT) 22 U/L (12-78) Alkaline Phosphatase 88 U/L (46-116) C-Reactive Protein, Quantitative 0.6 mg/dL (0.00-0.90) Total Protein 6.6 G/DL (6.4-8.2) Albumin 3.2 G/DL (3.4-5.0) L Globulin 3.4 g/dL Albumin/Globulin Ratio 0.9 (1.0-2.7) L Amylase Level 67 U/L (25-115) Lipase 180 U/L (73-393) Microbiology Date/Time Source Procedure Growth Status 08/21/20 18:17 Rectum - Final NO CARBAPENEM-RESISTANT ENTEROBACTERI... Complete 08/21/20 18:17 Rectum VRE Culture - Final NO VANCOMYCIN RESISTANT ENTEROCOCCUS ... Complete 08/21/20 18:17 Nasal Nares MRSA Culture - Final NO METHICILLIN RESISTANT STAPH AUREUS... Complete Intake and Output 08/23/20 08/24/20 19:00 07:00 Intake Total 720 ml 240 ml Balance 720 ml 240 ml Intake Oral 720 ml 240 ml # Voids 3 2 Objective General Appearance: no apparent distress, alert EENT: PERRL/EOMI, normal ENT inspection Neck: non-tender, normal alignment Cardiovascular: normal peripheral pulses, normal rate, regular rhythm Respiratory/Chest: chest wall non-tender, lungs clear Abdomen: tender Extremities: normal range of motion Edema: trace edema Neurologic: alert, oriented x 3 Assessment/Plan Assessment/Plan #abd pain #generalized body pain #rectal pain #constipation - admit inpatient - gen surg eval - pain control - seroquel at bedtime - bowel regimen Rodolfo Simental M.D. Aug 24, 2020 08:51
[2020-08-24 12:00] VITALS: BP 128/74
--- NOTE | 2020-08-24 12:09 | Consultation ---
Consult Note Consult Note DATE OF CONSULTATION: 08/24/2020 CONSULTING PHYSICIAN: Stephane Contreras MD. ATTENDING PHYSICIAN: Dr. Madrigal REASON FOR CONSULTATION: Abnormal CT HISTORY OF PRESENT ILLNESS: This is a 69-year-old female with past medical history of IBS was sent to ED from [facility] for rectal pain abdominal pain x1 day. Patient was complaining of diarrhea. CT of abdomen/pelvis showed findings consistent with COPD, and irregular left lower lobe opacity. Patient reports 50+ years of smoking history, 1.5 packs/day. Patient denies using oxygen at home. Patient was never diagnosed with COPD in the past. Patient was seen in telemetry. Patient also reports being vaccinated with Moderna vaccine x 2 doses. PAST MEDICAL HISTORY: IBS MEDICATIONS: Xanax, duloxetine, gabapentin, Linzess, methocarbamol, Seroquel, albuterol ALLERGIES: No known allergies FAMILY HISTORY: Unknown PERSONAL/SOCIAL HISTORY: Resident of [facility], reports extensive history of smoking, 50+ years, 1.5 pack/day REVIEW OF SYSTEMS: Negative except mentioned in HPI PHYSICAL EXAMINATION: VITAL SIGNS: Blood pressure 128/74, heart rate 65, respiratory rate 18, weight is 47 kg, height 163 cm General: Patient laying in bed, NAD Head: normocephalic, atraumatic Eyes: bilateral eye normal inspection, bilateral eye PERRL ENT: hearing grossly normal, normal pharynx, no angioedema, normal voice Neck: full range of motion, supple/symm/no masses Respiratory: chest non-tender, lungs clear, normal breath sounds, speaking full sentences Cardiovascular #1: regular rate, rhythm, no edema Cardiovascular #2: 2+ carotid (R), 2+ carotid (L), 2+ radial (R), 2+ radial (L), 2+ dorsalis pedis (R), 2+ dorsalis pedis (L) Gastrointestinal: normal bowel sounds, soft, no guarding, no rebound, tenderness Rectal: Deferred Genitourinary: normal inspection, no CVA tenderness Musculoskeletal: back normal, normal range of motion, gait/station normal, non- tender Neurologic: alert, motor strength/tone normal, oriented x3, sensory intact, responsive, speech normal Psychiatric: judgement/insight normal, memory normal, mood/affect normal, no suicidal/homicidal ideation Reflexes: 3+ bicep (R), 3+ bicep (L), 3+ tricep (R), 3+ tricep (L), 3+ knee (R), 3+ knee (L) Skin: no rash Lymphatic: no adenopathy LABORATORY DATA: Laboratory testing shows WBC 4.5, otherwise unremarkable. Chemistries show chloride 112, glucose 108, albumin 3.2 Urinalysis is unremarkable Assessment/Plan 1. Current smoker -Patient education on smoking cessation provided 2. CT abd/pelv findings consistent with COPD - Breathing treatment as needed - Monitor for hypoxia and provide supplemental oxygen as needed - Recommend outpatient follow-up with a director phone The care for this patient was discussed with my supervising physician. Time spent for this case was approximately 31 minutes. Toby Ferguson Aug 24, 2020 12:09
--- NOTE | 2020-08-24 15:13 | Surgery Progress Note ---
Surgery Progress Note Subjective Additional Comments doing well eating well +BM states has her Rx so now happy plan d/c today Objective Last 24 Hour Vital Signs Date Time Temp Pulse Resp B/P (MAP) Pulse Ox O2 Delivery O2 Flow Rate FiO2 08/24/20 12:00 97.4 65 18 128/74 (92) 94 08/24/20 09:00 Room Air 08/24/20 08:00 97.3 71 18 122/80 (94) 92 08/24/20 04:00 97.4 56 18 96/59 (71) 92 08/24/20 00:00 97.5 62 18 111/73 (86) 93 08/23/20 21:00 Room Air 08/23/20 20:00 97.0 62 18 151/84 (106) 98 08/23/20 19:56 64 18 95 Room Air 21 08/23/20 16:00 97.2 67 18 145/85 (105) 97 I&O Intake and Output 0 08/23/20 08/24/20 19:00 07:00 Intake Total 720 ml 240 ml Balance 720 ml 240 ml Intake Oral 720 ml 240 ml # Voids 3 2 Cardiovascular: RSR Respiratory: clear Abdomen: soft, flat, non-tender, present bowel sounds, non-distended Extremities: no edema Plan Problems: (1) Intractable abdominal pain Assessment & Plan: The appendix is normal. There are a few colonic diverticula. No evidence of diverticulitis. The distal ileum is mildly prominent and fluid-filled, but no transition point is noted and there is no definite wall thickening. No free or loculated intraperitoneal gas or fluid is evident. Distal esophagus, stomach, duodenum are unremarkable. The liver is unremarkable. There are questionably stones in the gallbladder neck. No biliary ductal dilatation. The pancreas, spleen, adrenals are unremarkable. There is a calcification in the right kidney which is probably parenchymal. Left kidney is unremarkable. No renal or ureteral calculi, hydronephrosis, or hydroureter. The bladder is mildly distended, otherwise unremarkable. The uterus and adnexal structures are unremarkable. No pelvic mass or adenopathy. The included lung bases demonstrate hyperinflation. There is an irregular opacity in the left lower lobe which measures 2.3 cm AP by 1.3 cm transverse, demonstrates a few internal air bronchograms. There is some adjacent peripheral scarring in the left lower lobe. There are a few small peripheral paraseptal bullae. no acute abd pathology exam benign no n/v/f/c tolerating diet having bowel function not surgical abdomen okay for diet Rx as written AM labs will follow with exam and recs Ag Brito Aug 24, 2020 15:13
[2020-08-24 16:00] VITALS: BP 141/90
--- NOTE | 2020-08-27 10:21 | Discharge Summary ---
Discharge Summary Discharge Summary _ Date of admission: 08/21/2020 Date of discharge: 08/24/[address] Simental History of Present Illness and Brief Hospital Course Ms. Hartman is a 69-year-old female with past medical history of IBS who was [facility] ED from [facility] for rectal pain and abdominal pain x1 day. Patient also complained of diarrhea. CT of abdomen/pelvis showed findings consistent with enteritis/ileitis, as well as COPD, and irregular left lower lobe opacity. Patient was admitted to the hospital for further management of her abdominal pain. On exam, patient's abdomen was fairly benign. Patient denied nausea, vomiting, fever or chills. Patient tolerated diet. Bowel regimen was given. Patient reported over 50 years of smoking history. Patient was strongly educated on smoking cessation. Given that patient was tolerating diet, and her pain controlled, patient was medically stable for discharge and was discharged to [facility] o n 08/24/2020. Consultants: Surgery Dr. Brito Pulmonology Dr. Contreras Discharge Condition Stable Discharge Activity As tolerated Discharge Diet Regular Final diagnoses Constipation Current smoker, smoking cessation counseling History of IBS I have been assigned to dictate discharge summary for this account. Toby Ferguson Aug 27, 2020 10:21
== END 2020-08-24 17:08 | DRG 392 ==
LOC: EDUNIT# 14:09 → EDBD 14:09 → EMR 14:48 → 4E 16:14 → EDBEDREQ 17:36 → 4E 18:19
DX: K59.00 Constipation, unspecified (principal); F17.200 Nicotine dependence, unspecified, uncomplicated; K52.9 Noninfective gastroenteritis and colitis, unspecified; Z87.19 Personal history of other diseases of the digestive system
CPT/HCPCS: 36415; 74177; 80053; 81003; 82150; 83690; 85025; 85610; 85651; 85730; 86140; 87081; 96361; 96374; 99285; J7030